=== PATIENT | male | born 1945 | race Caucasian/White ===

== ENCOUNTER → 2018-09-06 10:48 | Outpatient (CLI) | payer MEDICARE, SELFPAY ==
--- NOTE | 2018-09-06 | DI.MRI.S_ITS ---
PROCEDURE: MR LUMBAR SPINE WO CON INDICATIONS: LUMBAR STENOSIS WITH NEUROGENIC CLAUDICATION TECHNIQUE: Noncontrast sagittal T1 spin echo and T2 fast echo, sagittal STIR, axial T1 and T2 fast spin echo through the lumbar spine. In cases with scoliosis, additional coronal T2 fast spin echo may be performed. COMPARISON: None. FINDINGS: Image quality: Excellent. Alignment and Curvature: There is mild straightening of normal lumbar lordosis. Grade 1 anterolisthesis of L4 on L5 is seen. Bone Marrow: Marrow is of normal overall signal. No acute vertebral body compression fractures. Spinal Cord: Conus medullaris terminates at the L2 level. Visualized cord demonstrates normal signal and size. Paraspinous Soft Tissues: No paravertebral masses. L1-L2: Mild diffuse disc bulge and bilateral facet arthrosis is seen. No significant canal stenosis or neuroforaminal narrowing.. L2-L3: Broad-based disc bulge and bilateral facet arthrosis with hypertrophy of ligamentum flavum is seen. There is mild to moderate central canal stenosis and right worse than left bilateral neuroforaminal narrowing. Bulging disc likely contacting exiting right L2 nerve root. L3-L4: There is broad-based disc bulge and bilateral facet arthrosis with hypertrophy of ligamentum flavum. Moderate to severe central canal stenosis and bilateral neural foramina narrowing is seen. L4-L5: There is broad-based this bulge and bilateral facet arthrosis causing severe central canal stenosis and right worse than left bilateral neuroforaminal narrowing. L5-S1: Broad-based disc bulge and bilateral facet arthrosis is seen with mild central canal stenosis and [id number] bilateral neuroforaminal narrowing IMPRESSION: 1. Degenerative disc bulge and bilateral facet arthrosis with hypertrophy of ligamentum flavum throughout lumbar spine causing moderate to severe central canal stenosis and bilateral neuroforaminal narrowing as described in detail above. Finding is more prominent at L3-4 and L4-5 levels. 2. No marrow edema. No compression fracture. Grade 1 anterolisthesis of L4 on L5. No gross pars defect is seen. Dictated by: Yong Herrera M.D. on 09/06/2018 at 12:57 Approved by: Yong Herrera M.D. on 09/06/2018 at 13:04
== END ==
PROVIDERS: PCP Family Medicine; Visit Provider Orthopaedic Surgery
DX: M48.062 Spinal stenosis, lumbar region with neurogenic claudication (principal); M48.07 Spinal stenosis, lumbosacral region; M51.36 Other intervertebral disc degeneration, lumbar region; M51.37 Other intervertebral disc degeneration, lumbosacral region; M47.816 Spondylosis without myelopathy or radiculopathy, lumbar region; M47.817 Spondylosis without myelopathy or radiculopathy, lumbosacral region; M43.16 Spondylolisthesis, lumbar region
CPT/HCPCS: 72148

== ENCOUNTER 2019-08-05 09:52 | Inpatient (IN) | payer MEDICARE, SELFPAY ==
[2019-07-22 07:37] VITALS: BMI 23.7
[2019-08-05] VITALS (15 sets, daily range): BP systolic 101–150; BP diastolic 65–91; PULSE 71–85; RESP 12–17; TEMP 36.4–37.4; O2SAT 93–97; BMI 22.7; BMI 23.1
--- NOTE | 2019-08-05 | DI.RAD.S_ITS ---
PROCEDURE: XR LUMBAR SPINE 2-3V INDICATIONS: L2-3, L3-4, L4-5 LAMINECTOMY, L4-5 TLIF TECHNIQUE: 2 fluoroscopic views of the lumbar spine were acquired. COMPARISON: [facility] Seymourkarishma Antunez, , LUMBAR TRANSFORAMINAL STANLEY, 09/29/2018, 10:44. FINDINGS: Pedicle screws at L4-L5 with intervertebral body spacer. IMPRESSION: Pedicle screw fixation at L4-L5 and intervertebral body spacer. Dictated by: Jesse Collins M.D. on 08/05/2019 at 18:23 Approved by: Jesse Collins M.D. on 08/05/2019 at 18:24
[2019-08-05] MEDS: LACTATED RINGERS 1,000 ML 42 ML IV ×3 (10:41→16:58)
--- NOTE | 2019-08-05 13:14 | PM.PREOP ---
Pre-operative Note Interval Note History & Physical reviewed/Exam performed by Physician: Yes Changes to H&P: No
--- NOTE | 2019-08-05 14:10 | PM.OP.1 ---
Operative Date/Time/Diagnoses Date of procedure: 08/05/19 Time of procedure: 17:35 Pre-op diagnosis: Lumbar stenosis with radiculopathy lumbar spondylolisthesis Post-op diagnosis: same Procedure & Clinicians Procedure: L2-3, L3-4, L4-5 laminectomies L4-5 TLIF (posterior/posterior interbody fusion) with cage L4-5 screws Iliac crest bone graft aspirate Use of microscope Placement of an epidural catheter Same procedure as scheduled: Yes Indications: [age] year old male with intractable pain from stenosis. They had failed conservative management and requested operative intervention. Risks and benefits of surgery were discussed and appropriate consents were obtained. Surgeon: Jamel Shaffer Certified Ophthalmic Medical Technician: Niranjan Calderon Anesthesia Type: General Operative Notes Findings: None Closure Type: primary Specimen(s): none sent Prosthetic devices, grafts, tissues, transplants, or devices: NuVasive MAS Reline screws Globus Rise cage Applied: catheter Estimated Blood Loss (mL): 30 Procedure in detail: The patient was brought to the operating room and intubated on the table. A time-out was performed. They were then rolled over to the well-padded Tj table in the prone position. Preoperative antibiotics were given. The back was prepped and draped in the standard sterile fashion. Using fluoroscopy, a 6 cm longitudinal incision was made to the right of the midline. We used Bovie to come down to and split the lumbodorsal fascia. Using fluoroscopy and monitoring, we then percutaneously placed Jamshidi needles down the pedicles of L4 and L5 on the right side. These were changed out to guidewires and then we tapped and then placed the NuVasive MAS Reline screw shanks. We then opened up the retractors and used Bovie to clear up the posterolateral gutter as well as medially along the lamina to the spinous processes. A bur was used to decorticate the transverse processes. We brought in the microscope. Using a combination of bur and Kerrison rongeurs, a laminectomy was performed at L4-5 from the right side. We cleared over past the midline and carefully depressed the dura until we were able to decompress the opposite side. We cleared out the neural foramen. This completed the laminectomy at L4-5. This was separate and distinct from the TLIF approach as we were decompressing the canal and the nerves. We then began the TLIF prep. We carefully cleaned up the remainder of the foramen until we could easily retract the exiting root as well as clearing medially below the dura and expose the disc space. The disc was prepped with bipolar and then an annulotomy was performed. We performed a diskectomy using a combination of paddles, gail, pituitaries, and curettes. We distracted the disc using a paddle and locked the retractor in an open position. We then filled the disc space with Osteocel bone graft. We then placed the globus Rise cage under fluoroscopy and then filled this in with more bone graft. The distraction on the retractor was released to compress down. This completed the posterior interbody fusion portion of the TLIF at L4-5. We then moved the retractor up to L3-4 and again a right-sided laminectomy was performed at this level and we cleared across the midline out the foramen. We then moved the tractor up to L2-3. Again a right-sided laminectomy was performed at this level and we cleared across the midline and out to the foramen. We then placed the screw heads, mckenzie, and locked down the set screws. The wound was copiously irrigated. A small stab incision was made over the PSIS. We used a Jamshidi needle to aspirate several mL of bone marrow from the pelvis. This was mixed with the remaining Osteocel and combined with all of the locally harvested bone graft and placed in the posterolateral gutter for the posterior fusion of the TLIF at L4-5. An epidural catheter was then placed in the spinal canal by carefully depressing the dura and advancing it 6 cm cephalad under the remaining lamina without resistance. The muscle fascia was closed. The catheter was then injected with a solution containing 4 mL of 0.5% Marcaine, 1 mg Stadol, 4 mg Duramorph, and 100 mcg of fentanyl. This was injected without resistance and the catheter was pulled. We then went to the opposite side. Again using fluoroscopy, a 3 cm incision was made and Bovie was used to come down to split the fascia. Using neural monitoring and fluoroscopy, Jamshidi needles were advanced down the pedicles of L4 and L5 on the left side. These were switched over guidewires, tapped, and screws placed. We then placed a mckenzie and locked the set screws on this side. The wound was irrigated. The fascia was closed. Vancomycin powder was placed in the wounds. The superficial and skin were closed. A sterile dressing was placed. The patient was then rolled over extubated and brought to recovery room without complications. Complications: none Post-operative Condition: stable Disposition: PACU Plan for aftercare: Inpatient. Up with PT.
[2019-08-05] MEDS: CEFAZOLIN 2 GM/100 ML FROZ.PIGGY IV ×2 (14:13→22:45)
[2019-08-05] MEDS: ACETAMINOPHEN IV 1,000 MG/100 ML VIAL 400 MG IV (14:15)
--- NOTE | 2019-08-05 14:44 | SUR.OPER ---
Prone on spine table, head in foam head support, padded chest and pelvic supports, gel pad at knees, lower legs supported by pillows; nipples, genitalia and toes free of pressure, arms secured on foam padded arm boards at <90 degrees abduction. Tape over blanket at thigh secured to table.
[2019-08-05] MEDS: THROMBIN (RECOMBINANT) 5,000 UNIT VIAL 5000 UNIT TOP (14:51)
[2019-08-05] MEDS: VANCOMYCIN 1,000 MG VIAL 1000 MG TOP (14:51)
[2019-08-05] MEDS: SODIUM CHLORIDE 0.9% 1,000 ML, GENTAMICIN 80 MG IRR ×2 (14:52→16:10)
[2019-08-05] MEDS: BUPIVACAINE 0.5% (PF) 4 ML, MORPHINE-PF 4 MG, BUTORPHANOL 1 MG, fentaNYL 100 MCG INJ (16:57)
[2019-08-05] MEDS: hydrOXYzine 50 MG/ML INJ 25 MG IM (18:09)
[2019-08-05] MEDS: HYDROMORPHONE 2 MG INJ IV ×2 (18:10→18:19)
[2019-08-05] MEDS: OXYCODONE IR 5 MG TABLET PO (18:30)
[2019-08-05] MEDS: LACTATED RINGERS 1,000 ML 125 ML IV (20:22)
[2019-08-05] MEDS: GABAPENTIN 300 MG CAPSULE PO (20:25)
[2019-08-05] MEDS: CELECOXIB 200 MG CAPSULE 400 MG PO (20:25)
[2019-08-05] MEDS: TAMSULOSIN 0.4 MG CAPSULE 0.8 MG PO (20:25)
[2019-08-05] MEDS: OXYCODONE/ACETAMINOPHEN 5/325 TABLET 2 TAB PO (20:25)
[2019-08-06] MEDS: OXYCODONE/ACETAMINOPHEN 5/325 TABLET 2 TAB PO ×4 (00:43→12:35)
[2019-08-06 05:40] VITALS: BP 101/58; PULSE 75; RESP 16; TEMP 37; O2SAT 94
[2019-08-06 06:20] LABS: Hematocrit 41.5 % (41-53)
[2019-08-06] MEDS: CEFAZOLIN 2 GM/100 ML FROZ.PIGGY IV (06:21)
[2019-08-06 07:00] VITALS: BP 102/57; PULSE 76; RESP 16; TEMP 37.1; O2SAT 97
--- NOTE | 2019-08-06 08:14 | P.PN_ITS ---
Subjective Subjective Date Patient Seen: 08/06/19 Time Patient Seen: 08:14 Interval history: He is doing great. Almost no pain. Exam Vital Signs (past 8 hours): - 08/06/19 05:40 08/06/19 07:00 Temperature 98.6 F 98.8 F Pulse Rate 75 76 Respiratory Rate 16 16 Blood Pressure 101/58 L 102/57 L Pulse Oximetry 94 97 Oxygen Delivery Method Room Air Oxygen Flow Rate 0 Const Orientation: alert and oriented x3 Back/Spine/Pelvis Other: Minimal drainage. 5/5 motor both lower extremities. Objective Labs Result Diagrams: 08/06/19 05:40 Labs: Laboratory Results - last 24 hr 08/06/19 05:40 Hgb 14.0 Hct 41.5 Assessment & Plan Post-op Postoperative Procedures: Procedures Operation Date: 08/05/19 11:45 Actual Procedures Side Surgeon p L2-3,L3-4, L4-5 laminectomy, L4-5 instrumented fusion (TLIF) with bone graft Jamel Shaffer MD he is doing great. We will mobilize him today with physical therapy. Ant icipate probable discharge tomorrow.
[2019-08-06] MEDS: SODIUM CHLORIDE 0.9% FLUSH 10 ML IV (08:59)
[2019-08-06] MEDS: DOCUSATE 100 MG CAPSULE PO (09:01)
[2019-08-06] MEDS: buPROPion XL 150 MG TAB 300 MG PO (09:01)
[2019-08-06] MEDS: CELECOXIB 200 MG CAPSULE PO (09:02)
--- NOTE | 2019-08-06 09:15 | PT.IIE ---
Current Diagnoses Spondylolisthesis, lumbar region (08/05/19) Spinal stenosis, lumbar region with neurogenic claudication (08/05/19) Strain of muscle, fascia and tendon of lower back, subsequent encounter (08/05/19) Surgery Performed Operation Date: 08/05/19 11:45 Actual Procedures p L2-3,L3-4, L4-5 laminectomy, L4-5 instrumented fusion (TLIF) with bone graft - Jamel Shaffer MD Surgical History (Last Updated 07/22/19 @ 10:32 by Ya Leigh, RN) H/O partial thyroidectomy (Acute ~2010) History of tonsillectomy (Acute) History of vasectomy (Acute) S/P foot surgery, left (Acute) S/P foot surgery, right (Acute) Medical History (Last Updated 07/22/19 @ 10:43 by Ya Leigh RN) Anxiety (Acute) Arthritis (Acute) Back pain (Acute) BPH (benign prostatic hyperplasia) (Acute) Elevated cholesterol (Acute) Elevated PSA (Acute) H/O coronary angiogram (Acute) Lumbar stenosis (Acute) Spondylolisthesis, lumbar region (Acute) Physical Therapy Inpatient Evaluation/Re-Eval M1 PT/OT-IP Prior Functional Status Start: 08/06/19 12:12 Freq: NEEDED Status: Active Protocol: Document 08/06/19 09:15 AB (Rec: 08/06/19 12:43 AB [id number]) Medical Review Prior Functional Status Medical History Reviewed Yes Communication able to make needs known Mobility and Gait pt stated that he is independent with all mobilities and ambulation without AD Social History Household Members spouse Living Arrangements House Number of Floors (Floors) One Floor Number of Stairs To Enter/Railing? no steps to enter Home Environment Standard Height Toilet,Walk in Shower,Built-In Shower Seat Home Equipment Front Wheel Walker,Hand Held Shower M2 PT-IP Current Condition Start: 08/06/19 12:12 Freq: NEEDED Status: Active Protocol: Document 08/06/19 09:15 AB (Rec: 08/06/19 12:43 AB [id number]) Physical Therapy Current Condition Current Condition Evaluation Date 08/06/19 Treatment Diagnosis s/p L2-L5 lami; L4-5 TLIF; difficulty in walking Onset Date 08/05/2019 Precautions Lumbar Precautions Log Roll,No Twisting,Limit Bending,Lifting Restriction of 10 lbs,Gait Belt above Incisional Area M3 PT-IP Subjective Start: 08/06/19 12:12 Freq: NEEDED Status: Active Protocol: Document 08/06/19 09:15 AB (Rec: 08/06/19 12:43 AB [id number]) Subjective Physical Therapy Visit Type Type Initial Evaluation Visit Start Time 09:15 Visit Stop Time 09:53 Total Visit Minutes 38 Number of SHUTTLER Visits 0 Physical Therapy Visit Comments Patient Comments pt agreeable to do PT Therapy Pain Assessment Pain When Pain Assessed At Rest Pain Present Pain Present Pain Reported Location Lower Back Intensity 6 Scale Used Numeric (1 - 10) Pain Management Techniques Re-positioning,Timing of Activity with Medications M4 PT-IP Mobility and Gait Start: 08/06/19 12:12 Freq: NEEDED Status: Active Protocol: Document 08/06/19 09:15 AB (Rec: 08/06/19 12:43 AB [id number]) PT-Bed Mobility Assessment Rolling Type of Rolling Log Rolling Level of Assist Standby Assistance Supine to Sit Supine to Sit Standby Assistance Sit to Supine Sit to Supine Standby Assistance Scooting Scooting to Edge of Bed Standby Assistance PT-Transfer Assessment Sit to and From Stand Sit to and from Stand Standby Assistance,1 Person Assistance,Use of Upper Extremities Equipment Transfer Assistive Device Gait Belt,Front Wheeled Walker Orthotic/Prosthetic Devices or Brace: No Transfers Transfer Destination Chair Transfer Technique ambulation using FWW Transfer Ability Level of Assist Standby Assistance,Use of Upper Extremities Comments Mobility Comments pt educated on back precautions and log roll bed mobility. completed log roll supine <>sit x 2 reps SBA with cues on first rep and no cues needed on 2nd. pt was able to sit on EOB SBA. completed sit to stand CGA and cues. pt ambulated using FWW ~ 300 ft SBA. agreed to sit on the chair. positioned on chair. call light and table placed within reach. Gait Assessment Assistive Devices Assistive Device Gait Belt,Front Wheeled Walker Orthotic/Prosthetic Devices or Brace: No Factors Limiting Gait Function Factors Limiting Gait Function Decreased Activity Tolerance, Decreased Strength,Limited Range of Motion,Pain,Poor Balance PT-Balance Assessment Sitting Balance and Reactions Static Sitting Balance Ability Normal Dynamic Sitting Balance Ability Normal Standing Balance and Reactions Static Standing Balance Ability Good Dynamic Standing Balance Ability Fair Device Used FWW M5 PT-IP Objective Assessments Start: 08/06/19 12:12 Freq: NEEDED Status: Active Protocol: Document 08/06/19 09:15 AB (Rec: 08/06/19 12:43 AB [id number]) Orientation Orientation/Cognition Level of Alertness Alert Orientation Name,Age,Birthday,Situation Language Function Ability No Deficits Noted Safety Awareness Understands Safety Issues Memory Description No Deficits Noted Gross Range of Motion Lower Extremity ROM Assessment Within Functional Limits Strength Lower Extremity Strength Assessment Within Functional Limits Coordination Assessment Gross Coordination Gross Coordination WNL Sensation Assessment Sensation Gross Sensation WNL Muscle Tone Muscle Tone WNL Yes M6 PT-IP Treatment Start: 08/06/19 12:12 Freq: NEEDED Status: Active Protocol: Document 08/06/19 09:15 AB (Rec: 08/06/19 12:43 AB [id number]) Physical Therapy Treatment Education Education Provided Precautions,Weight Bearing Status,Post-Op Packet,Safety M7 PT-IP Assessment and Plan Start: 08/06/19 12:12 Freq: NEEDED Status: Active Protocol: Document 08/06/19 09:15 AB (Rec: 08/06/19 12:43 AB [id number]) PT Summary Assessment and Plan Potential Rehabilitation Potential Excellent Status of Condition at Evaluation Stable Summary Impairments Pain,ROM,Strength,Balance,Bed Mobility,Transfers,Gait, Activity Tolerance Assessment Summary pt requiring SBA with mobility and plans to go home with spouse to assist him. pt may go home when medically stable. Goals Bed Mobility Goal Independent Transfer Goal Independent,Front Wheeled Walker Gait Goal Independent,Front Wheel Walker Gait Distance 350 Other Goals ambulation without AD 50 ft SBA Days to Meet Goals 3 Frequency of Treatment Frequency Of Treatment Twice a Day Treatment Plan Physical Therapy Treatment Plan Bed Mobility Training,Transfer Training,Gait Training, Therapeutic Exercise,Balance Retraining,Post Op Education, Discharge Planning,Hot or Cold Pack,Neuromuscular Re-ed, Coordination Retraining,Manual Therapy Recommendations To Nursing Amount of Assist Needed 1 Person Assist Discharge Recommendations PT Discharge Recommendations Home with Assistance Transportation Needs at Discharge Private Vehicle
[2019-08-06 09:50] VITALS: O2SAT 94
--- NOTE | 2019-08-06 10:49 | PC.NURSE ---
Addendum entered by Miriam Zavaleta R.N. 08/06/19 13:11: Voided 350 ml clear elijah urine. Said he voided without difficulty and denies post-void urgency. Will enter discharge order officially (per earlier conversation with Dr Shaffer) and work on getting patient ready to go home. Original Note: Shift summary: Awake and alert, oriented X3. Worked with PT already this morning and has been cleared for discharge home. Patient agreeable, understands he must make sure he is able to void before leaving. Stanton catheter dc'd at 1000. New Coversite dressing placed to back per MD order. 2 parallel incisions mid low back well-approx. with sutures, no active bleeding or drainage noted, skin slightly pink at suture sites. Denies paresthesias. Back pain well-controlled with Percocet. Lungs CTA, HRR. BT+, Flatus+. Denies N/V. Able to make needs known and calls appropriately. Up in chair, call light and belongings within reach, chair alarm on.
[2019-08-06 12:52] VITALS: BP 109/70; PULSE 72; RESP 17; TEMP 36.9; O2SAT 97
--- NOTE | 2019-08-06 13:16 | CM.DANOTE ---
Patient is a 73 year old male who was admitted on 08/05/19 for TLIF. Pt has [facility] for insurance and his PCP is Dr. Pako Horta. EMR was reviewed. Per Ortho MD, pt tolerated procedure well and has pain controlled and can d/c home later today after PT. Per PT, pt ambulated well and recommending safe d/c home with spouse assist and outpt PT. Per RN, pt was able to void independently with no issues and confirmed with MD that pt can d/c home today. SW met bedside with pt and spouse and explained role and pt confirms he lives at home with his in [place] and is mostly Independent with ADL's at baseline and does not use DME to ambulate. Pt denies any hx of HH or SNF and states that he also ambulated the halls with RN and his after PT initial eval and both pt and spouse feel comfortable with d/c home today and follow up with Ortho office and plan to get established at [facility] Outpt PT. No concerns at this time. Plan: Patient to d/c home today via spouse POV and plans for outpt PT at [facility]. No SW needs at this time. LENNIE Kaur Discharge Planning/Care Management CM Discharge Assessment Start: 08/06/19 13:14 Freq: Status: Active Protocol: Document 08/06/19 13:14 BF (Rec: 08/06/19 13:16 BF [id number]) Discharge Planning Assessment Assigned Director Of Science LENNIE Carter DPOA/Assigned Designee Name Spouse Analia Contact Information [phone] Advance Directives? Yes Advance Directives on File No History Provided By Patient,Family Member,Medical Record Has Patient been admitted in last 30 No days? Prior Living Arrangements House Household Members spouse Type of transporation used prior to Drives own vehicle admit Independent with ADL's Yes Is patient alert and oriented? Yes Caregiver for Another No DME Already Rented / Owned FWW / Walker Patient/Family Preference OP PT Therapy,OP OT Therapy Comment Per PT, safe for d/c home with outpt PT Barriers to Discharge No Discharge Plan Home Community Services Physical Therapy,Occupational Therapy Transportation Arrangement Spouse bedside and can provide transport Referrals Initiated None needed Whiteboard Updated in Patient Room with Yes name and ext. # of Director Of Science Review Status In Process Please Provide Date Initial DC 08/06/19 Assessment Was Performed Next Review Type Continued Stay Review Pre-Anesthesia Assessment Start: 07/22/19 07:37 Freq: Status: Complete Protocol: Document 07/22/19 07:37 ADRIANO (Rec: 07/22/19 07:39 [facility] [id number]) Pre-Anesthesia Assessment Preferred Name Bill Patient Information Reviewed Via Chart Review Assessment Completed With Patient Primary Care Provider Pako Horta Seen Specialist in Last 12 Months Yes Specialist Seen Orthopedist,Urologist Primary Language Maori Lace Pinner Required No Height 182.88 cm Weight 79.379 kg Body Mass Index (BMI) 23.7 Hearing Ability Use of Hearing Aid Visual Impairment Partially Limited Visual Assist Glasses Dentition Type Teeth, Natural Present Barriers to Learning Auditory,Visual Hx Anesthesia Reactions No Hx Family Anesthesia Reaction No Hx Malignant Hyperthermia No Hx Blood Transfusions No Hx Blood Transfusion Reaction No Anesthesia Review Requested Yes: Couldn't urinate after surgery Supervisor [employer] No alcohol intake current alcohol intake frequency 0-2 drinks per day Alcohol Intake Frequency Other: 2-3/day Smoking Status Former smoker Tobacco type cigarettes Smoking packs per day 1 how long ago did patient quit smoking 1983 Smoking pack-years 4 Substance Use Type painkillers,prescription drug Pain Present Denied Pain Musculoskeletal Symptoms Back Pain,Joint Pain,Numbness History of Falling (Recent or History of No ) Patient is completely paralyzed or No completely immobile Ambulatory Aid None/bed rest/nurse assist Gait/Transferring Normal/bedrest/immobile Mental Status Oriented to own ability Comment numbness in feet 'after walking a while; finger numbness Is patient on oxygen? No Does patient have JUÁREZ/SOB No Hx Sleep Apnea No CPAP/BIPAP use not prescribed Currently Taking a Beta Lemuel No Can You Climb a Flight of Stairs Without No SOB Hx Chest Pain No Hx SOB No Hx Syncope or Dizziness No Anti-Coagulant Therapy No Has a Product/Device Technologist Yes Cardiac Testing Yes: Stess EKGs, Treadmill/ nuclear Hx Pacemaker/ICD No Pacemaker Rep Required? No Cardiac Clearance Received Not Applicable Diet Type At Home Regular dysphagia No Bladder Pattern Frequency,Hesitancy,Nocturia, Retention Urinary Catheter Present No Hx Urinary Self Catheterization No Diabetes No Hx Drug Resistant Organism No Presence of External or Internal Medical No Devices Have you traveled outside the [facility] in the last 30 days? Marital Status Lives With spouse Prior Living Arrangements House Number of Floors (Floors) 3 or More Floors Number of Stairs To Enter/Railing? Living area on main level, no stairs into the home Support System Spouse Does the Patient Have Assistance After Yes Surgery Patient Discharge Plan Description Return Home Feels Safe in Current Environment Yes Been Physically Hurt or Threatened By a No Person in Current Environment Do you have thoughts of harming yourself None or others? Are you currently considering suicide? No Do you have a plan to hurt yourself or No Plan others? Do You Have Any Spiritual Beliefs That No May Affect Your HC Choices? Do You Have Any Cultural Practices That No May Affect Your HC Choices? Spiritual Referral None Who Can We Speak to About Patient's Care Famaily & friends Identifying Code for Release of Patient declined Information Health Care Proxy/Next of Kin - Analia Page Health Care Proxy Emergency Contact Name Glo Page Emergency Contact Advance Directives? Yes Advance Directives on File No Requested Patient Bring Advanced Yes Directives DOS Power of Prize Coordinator Yes Power of Prize Coordinator Name Glo Page Power of Prize Coordinator PAC Instructions Assistance for 24 hours post- op,Do not shave/clip surgical site,Durable medical equipment ,Medications to take/avoid, Nasal antibiotic,No ETOH/ petroleum product on skin DOS, NPO,Ortho class,Post-op transportation,Pre-op antibiotic,Pre-surgical wash, Sensory aids,Sturdy shoes/ comfortable clothes,Do not bring valuables and remove jewelry
== END 2019-08-06 14:05 | disposition home or self-care (01) | DRG 455 ==
PROVIDERS: Admitting Provider Orthopaedic Surgery; PCP Family Medicine; Visit Provider Orthopaedic Surgery
PROC: 0SG00AJ Fusion of Lumbar Vertebral Joint with Interbody Fusion Device, Posterior Approach, Anterior Column, Open Approach (ICD-10-PCS; principal; 2019-08-05 11:45)
DX: M48.062 Spinal stenosis, lumbar region with neurogenic claudication (principal); M43.16 Spondylolisthesis, lumbar region; N40.0 Benign prostatic hyperplasia without lower urinary tract symptoms
CPT/HCPCS: 36415; 72100; 76000; 85014; 85018; 94762; 97161; C1776; J0131; J0330; J0595; J0690; J1100; J1170; J2274; J2405; J2704; J3010; J3410

== ENCOUNTER → 2021-10-01 14:29 | Outpatient (CLI) | payer MEDICARE, SELFPAY ==
[2019-08-05 20:06] VITALS: BMI 23.1
--- NOTE | 2021-10-01 | DI.ECHO.S_ITS ---
[facility] +---------+ : : [address] : [address] : : : : [id number] : : : : Phone: [phone]+ Echocardiogram Report + + :Name: ELENA SAWYER Study Date: 10/01/2021 Height: 72 in : :[facility] ReadingLocation: Weight: 175 lb : : Gender: Male BSA: 2.0 m2 : :: 1945 Age: 75 yrs BP: 133/78 mmHg: :Reason For Study: SUPRAVENTRICULAR TACHYCARDIA : :Ordering Physician: RADHA, : :ABDULLAHI Performed By: Sarah Fox : :Referring: ABDULLAHI DELGADILLO : + + Interpretation Summary 1) Normal left ventricular thickness, size, wall motion, and systolic function (EF 60-65%). 2) Normal right ventricular size and function. 3) There is mild aortic regurgitation. 4) No prior Echo available for comparison. Procedure: A two-dimensional transthoracic echocardiogram with color flow and Doppler was performed. The study quality was technically adequate. There is no prior echocardiogram noted for this patient. The patient was in sinus rhythm with heart rates between 68-74 bpm during the exam. Left Ventricle: The left ventricle is normal in size and wall thickness. The ejection fraction is estimated to be 60-65%. Left ventricular systolic function appears normal without focal wall motion abnormalities. Diastolic parameters suggest a relaxation abnormality of the left ventricle, consistent with probable normal filling pressures. Right Ventricle: The right ventricle is normal in size and function. Atria: The left atrium is not well visualized. The left atrium grossly appears normal in size. Right atrium not well visualized. The right atrium grossly appears normal in size. Mitral Valve: There is mild mitral annular calcification. The mitral valve is normal in structure and function. There is trace mitral regurgitation. Aortic Valve: The aortic valve is not well visualized. The aortic valve is grossly normal. The aortic valve opens well. There is no aortic valve stenosis. There is mild aortic regurgitation. Tricuspid Valve: The tricuspid valve is normal in structure and function. There is trace tricuspid regurgitation. Pulmonary artery pressures cannot be estimated because of the lack of a measurable TR jet velocity. Pulmonic Valve: The pulmonic valve is not well visualized. Great Vessels: The aortic root is normal size. The ascending aorta is at the upper limits of normal in size. The IVC is of normal diameter and collapses greater than 50% with a sniff. This suggests a low right atrial pressure of 3 mm Hg. Pericardium/ Pleura There is no pericardial effusion. There is no pleural effusion. MMode/2D Measurements & Calculations LVIDd: 4.3 cm LVOT diam: 2.2 cm LVIDs: 2.9 cm Ao root diam: 3.9 cm FS: 32.0 % asc Aorta Diam: 3.6 cm IVSd: 0.89 cm Ao Arch Diam (Prox Trans): 2.6 cm LVPWd: 1.0 cm LV hardy. diameter/BSA (cm/m^2): 2.1 LV sys. diameter/BSA (cm/m^2): 1.4 LA A2 area: 18.9 cm2 RA long axis: 5.1 cm LA A4 area: 14.5 cm2 RA area: 16.1 cm2 LA length (vol): 5.1 cm RA vol: 43.2 ml LA vol: 45.0 ml RA : 21.5 ml/m2 LA vol index: 22.4 ml/m2 IVC diam: 1.4 cm RVD1 (basal): 3.4 cm RVD2 (mid): 2.9 cm TAPSE: 1.9 cm Doppler Measurements & Calculations Ao V2 max: 134.7 cm/sec LVOT Max Roddy: 111.7 cm/sec Ao V2 mean: 89.7 cm/sec LV V1 max P.0 mmHg Ao max P.3 mmHg LV V1 VTI: 23.1 cm Ao mean P.7 mmHg TESHA(I,D): 3.4 cm2 Ao V2 VTI: 25.6 cm TESHA(V,D): 3.1 cm2 sev ratio: 0.90 TESHA indexed to BSA (cm^2/m^2): 1.7 AI P1/2t: 457.2 msec AI dec slope: 222.0 cm/sec2 MV E max roddy: 79.6 cm/sec PA pr(Accel): 29.3 mmHg MV A max roddy: 74.6 cm/sec MV E/A: 1.1 Med Peak E' Roddy: 7.1 cm/sec E/E' med: 11.2 Lat Peak E' Roddy: 9.0 cm/sec E/E' lat: 8.8 E/e' average: 10.0 MV dec time: 0.25 sec SV(LVOT): 86.9 ml Reading Physician:08:26 PM
== END ==
PROVIDERS: PCP Family Medicine; Referring Provider Internal Medicine Cardiovascular Disease; Visit Provider Internal Medicine Cardiovascular Disease
DX: I35.1 Nonrheumatic aortic (valve) insufficiency (principal); I47.1 Supraventricular tachycardia
CPT/HCPCS: 93306

== ENCOUNTER → 2023-06-21 13:54 | Outpatient (CLI) | payer MEDICARE, SELFPAY ==
[2019-08-05 20:06] VITALS: BMI 23.1
--- NOTE | 2023-06-21 13:55 | DI.MRI.S_ITS ---
PROCEDURE: MR PELVIC PROSTATE PROTOCOL INDICATIONS: Elevated prostate specific antigen [PSA] TECHNIQUE: Coronal HASTE, axial T1 FSE with fat saturation, 3-plane nonbreath-hold T2 FSE. After the administration of contrast, dynamic axial, delayed axial and coronal VIBE or 2-D FLASH with fat saturation through the pelvis. Diffusion weighted imaging and ADC was performed. COMPARISON: None. FINDINGS: Image quality: Possible metallic artifact within the prostate limits evaluation on diffusion-weighted images. Prostate: Prostate measures 4.8 x 5.5 x 5.9 cm. Estimated volume is 81 cc. Transitional zone heterogenous nodules are present, either well encapsulated or mostly encapsulated, compatible with PI-RADS 1 or 2 likely BPH nodules. Mildly T2 hypointense heterogenous striated appearance of the peripheral zone is commonly seen with current or prior prostatitis, PI-RADS 2. The peripheral zones compressed by the enlarged transitional zone. The seminal vesicles appear clear. There is scarring of the left seminal vesicles, that appears asymmetric An extruded BPH nodule is seen at left anterior mid gland. Genitourinary system: Mild bladder trabeculations and diverticula, likely related to chronic obstruction. Bowel and peritoneum: There are colonic diverticula. There is mild wall thickening of the sigmoid colon, likely related to chronic diverticular disease, correlate with age-appropriate colonoscopy results. Nodes and vessels: No pathologic lymph nodes by size criteria within the field of view. No aneurysmal vessel identified Soft tissues: Small fat containing left inguinal hernia. Bones: Degenerative changes, suspected right trochanteric bursitis. Partially seen lumbar fusion hardware. IMPRESSION: Prostatomegaly and sequela of BPH. Appearance of the peripheral zone likely due to prostatitis sequelae and compression due to the enlarged transitional zone. No PI-RADS 3, 4, or 5 lesion identified. Diffusion-weighted images however are degraded by metallic artifact. Consider continued PSA surveillance and repeat MRI if necessary. Dictated by: Feng Deluca M.D. on 06/22/2023 at 8:11 Approved by: Feng Deluca M.D. on 06/22/2023 at 8:18
== END ==
PROVIDERS: PCP Family Medicine; Referring Provider Urology; Visit Provider Urology
DX: N40.0 Benign prostatic hyperplasia without lower urinary tract symptoms (principal); K40.90 Unilateral inguinal hernia, without obstruction or gangrene, not specified as recurrent; R97.20 Elevated prostate specific antigen [PSA]
CPT/HCPCS: 72197; A9579